=== PATIENT | male | born 1975 | race Caucasian/White ===

== ENCOUNTER 2023-05-09 12:42 | Inpatient (IN) | payer OTHER ==
[2023-05-09] MEDS ORDERED: PANTOPRAZOLE SODIUM 40 MG VIAL IVPUSH ONE (14:05)
[2023-05-09] MEDS ORDERED: SODIUM CHLORIDE 0.9% 500 ML INFUS.BAG IV ONE (14:05)
[2023-05-09] MEDS ORDERED: FAMOTIDINE 20 MG/50 ML IVPB 20 MG/50 ML MG IVPB ONE ×2 (14:05→14:25)
[2023-05-09] MEDS ORDERED: MAG HYDROX/AL HYDROX/SIMETH -MYLANTA- ORAL SUSPENSION PO ONE (14:11)
[2023-05-09] MEDS ORDERED: PANTOPRAZOLE SODIUM 40 MG VIAL IV ONE (14:12)
[2023-05-09] MEDS ORDERED: CEFTRIAXONE 1 GM in DEXTROSE 5%-WATER - 100 ML IVPB ONE (14:23)
[2023-05-09] MEDS ORDERED: MAG HYDROX/AL HYDROX/SIMETH 30 ML UNIT-DOSE CUP ONE (14:24)
[2023-05-09] MEDS ORDERED: PANTOPRAZOLE SODIUM 40 MG VIAL ONE (14:25)
[2023-05-09] MEDS ORDERED: PANTOPRAZOLE SODIUM 160 MG in SODIUM CHLORIDE 290 ML IVPB SCH ×2 (14:30→15:30)
[2023-05-09 14:51] LABS: BASO % 0.6 % (0-2.0); EOS % 0.3 % (0-4.5); HEMATOCRIT 37.5 % (35.4-49); HEMOGLOBIN 12.3 GM/dL (11.7-16.9); LYMPH % 16.4 % (8-40); MCH 31.4 pg (25.7-33.7); MCHC 32.7 g/dl (32.0-35.9); MEAN CELL VOLUME 95.9 fl (80-96); MEAN PLT VOLUME 10.1 fl (7.5-11.1); MONO % 9.7 % (3.8-10.2); PLATELET COUNT 83 10^3/uL (134-434); RBC 3.91 M/mm3 (4.00-5.60); RDW 14.6 % (11.9-15.9); WHITE BLOOD COUNT 7.9 K/mm3 (4.0-10.0)
[2023-05-09] MEDS ORDERED: CEFTRIAXONE 1 GM/50 ML BAG ONE (14:55)
[2023-05-09 14:59] LABS: INR 1.47 (0.83-1.09)
[2023-05-09 15:01] LABS: ACTIVATED PTT 35.1 SECONDS (25.2-36.5)
[2023-05-09 15:11] LABS: CHLORIDE 107 mmol/L (98-107); POTASSIUM 3.9 mmol/L (3.5-5.1); SODIUM 137 mmol/L (136-145)
[2023-05-09 15:14] LABS: ALBUMIN 2.5 g/dl (3.4-5.0); ANION GAP 6 mmol/L (4-13); BLOOD UREA NITROGEN 26.6 mg/dL (7-18); CALCIUM 8.6 mg/dL (8.5-10.1); CO2 24 mmol/L (21-32); GLUCOSE,RANDOM 188 mg/dL (74-106); LIPASE 93 U/L (73-393)
[2023-05-09 15:17] LABS: CREATININE 0.7 mg/dL (0.55-1.3); SGOT/AST 102 U/L (15-37); SGPT/ALT 58 U/L (13-61)
[2023-05-09 15:18] LABS: BILIRUBIN,TOTAL 2.5 mg/dL (0.2-1); TOT PROT 7.8 g/dl (6.4-8.2)
[2023-05-09 15:20] LABS: ALK PHOS 133 U/L (45-117)
[2023-05-09 15:21] LABS: LACTIC ACID 2.1 mmol/L (0.4-2.0)
[2023-05-09] MEDS ORDERED: LACTATED RINGERS SOLUTION 1,000 ML IV SCH ×4 (16:00→21:10)
[2023-05-09] MEDS ORDERED: LORazepam 1 MG TABLET PO SCH (17:00)
[2023-05-09] MEDS ORDERED: LACTATED RINGERS SOLUTION 1,000 ML/1,000 ML INFUS.BAG IV STA (18:30)
[2023-05-09] MEDS ORDERED: OCTREOTIDE ACETATE 100 MCG/1 ML IVPUSH ONE (18:38)
[2023-05-09] MEDS ORDERED: LORazepam 1 MG TABLET PO PRN (18:43)
[2023-05-09 18:56] LABS: HEMATOCRIT 33.9 % (35.4-49); HEMOGLOBIN 11.5 GM/dL (11.7-16.9); MEAN CELL VOLUME 94.1 fl (80-96); MEAN PLT VOLUME 10.9 fl (7.5-11.1); PLATELET COUNT 72 10^3/uL (134-434); WHITE BLOOD COUNT 8.1 K/mm3 (4.0-10.0)
[2023-05-09] MEDS ORDERED: OCTREOTIDE ACETATE 100 MCG/1 ML ONE (19:22)
[2023-05-09] MEDS ORDERED: ONDANSETRON 4 MG/2 ML VIAL IVPUSH PRN ×3 (19:34→21:10)
[2023-05-09] MEDS ORDERED: ONDANSETRON 4 MG/2 ML VIAL ONE (19:43)
[2023-05-09] MEDS ORDERED: FENTANYL CITRATE/PF 50 MCG/ML VIAL ONE ×4 (20:15→21:25)
[2023-05-09] MEDS ORDERED: MIDAZOLAM HCL 2 MG/2 ML SINGLE DOSE VIAL ONE (20:15)
[2023-05-09] MEDS ORDERED: KETAMINE HCL 200 MG/20 ML VIAL ONE (20:23)
[2023-05-09 20:35] LABS: MAGNESIUM 1.8 mg/dL (1.8-2.4)
[2023-05-09 20:40] LABS: PHOSPHOROUS 2.9 mg/dL (2.5-4.9)
[2023-05-09] MEDS ORDERED: RIFAXIMIN 550 MG TABLET PO SCH (22:00)
[2023-05-09 22:56] LABS: BASO % 0.5 % (0-2.0); EOS % 0.7 % (0-4.5); HEMATOCRIT 33.9 % (35.4-49); HEMOGLOBIN 11.1 GM/dL (11.7-16.9); LYMPH % 15.1 % (8-40); MCH 31.7 pg (25.7-33.7); MCHC 32.8 g/dl (32.0-35.9); MEAN CELL VOLUME 96.7 fl (80-96); MEAN PLT VOLUME 10.3 fl (7.5-11.1); MONO % 9.9 % (3.8-10.2); NEUT % 73.8 % (42.8-82.8); PLATELET COUNT 70 10^3/uL (134-434); RDW 14.5 % (11.9-15.9); WHITE BLOOD COUNT 7.4 K/mm3 (4.0-10.0)
[2023-05-09] MEDS: MUPIROCIN 2% TOPICAL OINTMENT FOR DECOLONIZATION NS SCH (23:25)
[2023-05-09] MEDS: CHLORHEXIDINE GLUCONATE 4% CLEANSER FOR DECOLONIZATION TP SCH (23:25)
[2023-05-09] MEDS: OCTREOTIDE ACETATE 200 MCG, OCTREOTIDE ACETATE 1,000 MCG in DEXTROSE 5%-WATER - 496 ML IVPB SCH (23:26)
[2023-05-09] MEDS: RIFAXIMIN 550 MG TABLET PO SCH (23:36)
[2023-05-09 23:53] VITALS: BMI 35.4
[2023-05-10] MEDS: THIAMINE HCL 200 MG/2 ML VIAL IVPB SCH ×4 (00:29→21:15)
[2023-05-10] MEDS: LACTATED RINGERS SOLUTION 1,000 ML IV SCH (00:30)
[2023-05-10] MEDS ORDERED: ONDANSETRON 4 MG/2 ML VIAL IVPUSH PRN (02:00)
[2023-05-10] MEDS ORDERED: CEFTRIAXONE 1 GM in DEXTROSE 5%-WATER - 50 ML IVPB SCH ×3 (06:00→10:00)
[2023-05-10 07:04] LABS: BASO % 0.6 % (0-2.0); EOS % 1.6 % (0-4.5); HEMATOCRIT 30.8 % (35.4-49); HEMOGLOBIN 10.1 GM/dL (11.7-16.9); LYMPH % 24.6 % (8-40); MCHC 32.9 g/dl (32.0-35.9); MEAN CELL VOLUME 97.4 fl (80-96); MEAN PLT VOLUME 9.9 fl (7.5-11.1); MONO % 9.8 % (3.8-10.2); NEUT % 63.4 % (42.8-82.8); PLATELET COUNT 62 10^3/uL (134-434); RBC 3.17 M/mm3 (4.00-5.60); RDW 14.4 % (11.9-15.9); WHITE BLOOD COUNT 7.1 K/mm3 (4.0-10.0)
[2023-05-10 07:09] LABS: INR 1.36 (0.83-1.09); PROTHROMBIN TIME (PATIENT) 15.7 SEC (9.7-13.0)
[2023-05-10 07:12] LABS: ACTIVATED PTT 34.1 SECONDS (25.2-36.5)
[2023-05-10 07:26] LABS: ALBUMIN 2.2 g/dl (3.4-5.0); CALCIUM 7.6 mg/dL (8.5-10.1); MAGNESIUM 2.1 mg/dL (1.8-2.4)
[2023-05-10 07:29] LABS: CREATININE 0.6 mg/dL (0.55-1.3); PHOSPHOROUS 3.3 mg/dL (2.5-4.9)
[2023-05-10 07:30] LABS: BILIRUBIN,TOTAL 1.4 mg/dL (0.2-1); TOT PROT 6.5 g/dl (6.4-8.2)
[2023-05-10] MEDS: RIFAXIMIN 550 MG TABLET PO SCH ×2 (09:54→21:19)
[2023-05-10] MEDS: MUPIROCIN 2% TOPICAL OINTMENT FOR DECOLONIZATION NS SCH ×2 (09:54→21:20)
[2023-05-10] MEDS ORDERED: FOLIC ACID 1 MG TABLET (FP) PO SCH (10:00)
[2023-05-10] MEDS ORDERED: PANTOPRAZOLE SODIUM 40 MG VIAL IVPUSH SCH (10:00)
[2023-05-10] MEDS ORDERED: NADOLOL 20 MG TABLET (FP) PO SCH (10:00)
[2023-05-10] MEDS ORDERED: LACTULOSE 20 GM/30 ML UDC (FOR ORAL USE ONLY) PO SCH ×2 (10:00)
[2023-05-10] MEDS ORDERED: PANTOPRAZOLE SODIUM 160 MG in SODIUM CHLORIDE 290 ML IVPB SCH (10:30)
[2023-05-10] MEDS ORDERED: ONDANSETRON 4 MG/2 ML VIAL ONE (11:03)
[2023-05-10] MEDS: OCTREOTIDE ACETATE 200 MCG, OCTREOTIDE ACETATE 1,000 MCG in DEXTROSE 5%-WATER - 496 ML IVPB SCH (21:20)
[2023-05-10] MEDS: CHLORHEXIDINE GLUCONATE 4% CLEANSER FOR DECOLONIZATION TP SCH (21:20)
[2023-05-11] MEDS ORDERED: LORazepam 1 MG TABLET PO SCH (05:00)
[2023-05-11] MEDS: THIAMINE HCL 200 MG/2 ML VIAL IVPB SCH (06:02)
[2023-05-11] MEDS: LACTATED RINGERS SOLUTION 1,000 ML IV SCH (06:02)
[2023-05-11] MEDS ORDERED: LACTATED RINGERS SOLUTION 1,000 ML IV SCH (07:42)
[2023-05-11] MEDS ORDERED: OCTREOTIDE ACETATE 200 MCG, OCTREOTIDE ACETATE 1,000 MCG in DEXTROSE 5%-WATER - 496 ML IVPB SCH ×2 (07:42→10:05)
[2023-05-11] MEDS ORDERED: MUPIROCIN 2% TOPICAL OINTMENT FOR DECOLONIZATION NS SCH (10:00)
[2023-05-11] MEDS: NADOLOL 20 MG TABLET (FP) PO SCH (10:31)
[2023-05-11] MEDS: RIFAXIMIN 550 MG TABLET PO SCH ×2 (10:31→23:36)
[2023-05-11] MEDS: LACTULOSE 20 GM/30 ML UDC (FOR ORAL USE ONLY) PO SCH (10:31)
[2023-05-11] MEDS: PANTOPRAZOLE SODIUM 40 MG VIAL IVPUSH SCH (10:32)
[2023-05-11] MEDS: FOLIC ACID 1 MG TABLET (FP) PO SCH (10:32)
[2023-05-11] MEDS: CEFTRIAXONE 1 GM in DEXTROSE 5%-WATER - 50 ML IVPB SCH (10:33)
[2023-05-11] MEDS ORDERED: THIAMINE HCL 200 MG/2 ML VIAL IVPB SCH (14:00)
[2023-05-11] MEDS ORDERED: CHLORHEXIDINE GLUCONATE 4% CLEANSER FOR DECOLONIZATION TP SCH (22:00)
[2023-05-12] MEDS ORDERED: LORazepam 0.5 MG TABLET PO PRN
[2023-05-12] MEDS ORDERED: LORazepam 0.5 MG TABLET PO SCH (05:00)
[2023-05-12] MEDS: CEFTRIAXONE 1 GM in DEXTROSE 5%-WATER - 50 ML IVPB SCH (09:24)
[2023-05-12] MEDS: LACTULOSE 20 GM/30 ML UDC (FOR ORAL USE ONLY) PO SCH (09:24)
[2023-05-12] MEDS: FOLIC ACID 1 MG TABLET (FP) PO SCH (09:24)
[2023-05-12] MEDS: RIFAXIMIN 550 MG TABLET PO SCH (09:24)
[2023-05-12] MEDS: NADOLOL 20 MG TABLET (FP) PO SCH (09:25)
[2023-05-12] MEDS: PANTOPRAZOLE SODIUM 40 MG VIAL IVPUSH SCH (09:25)
[2023-05-12] MEDS ORDERED: THIAMINE HCL 200 MG/2 ML VIAL IVPB SCH ×2 (10:00)
[2023-05-12 10:23] LABS: BASO % 0.8 % (0-2.0); EOS % 4.7 % (0-4.5); HEMOGLOBIN 10.4 GM/dL (11.7-16.9); LYMPH % 27.8 % (8-40); MCH 31.9 pg (25.7-33.7); MCHC 32.4 g/dl (32.0-35.9); MEAN CELL VOLUME 98.4 fl (80-96); MEAN PLT VOLUME 10.4 fl (7.5-11.1); MONO % 8.5 % (3.8-10.2); NEUT % 58.2 % (42.8-82.8); PLATELET COUNT 77 10^3/uL (134-434); RBC 3.25 M/mm3 (4.00-5.60); RDW 14.8 % (11.9-15.9); WHITE BLOOD COUNT 6.2 K/mm3 (4.0-10.0)
[2023-05-12 10:36] LABS: POTASSIUM 3.6 mmol/L (3.5-5.1)
[2023-05-12 10:55] LABS: CALCIUM 7.5 mg/dL (8.5-10.1); CREATININE 0.7 mg/dL (0.55-1.3)
[2023-05-12 10:56] LABS: ALBUMIN 2.2 g/dl (3.4-5.0); MAGNESIUM 2.1 mg/dL (1.8-2.4)
[2023-05-12 10:58] LABS: PHOSPHOROUS 3.5 mg/dL (2.5-4.9)
[2023-05-12 11:00] LABS: BILIRUBIN,TOTAL 1.8 mg/dL (0.2-1); TOT PROT 6.8 g/dl (6.4-8.2)
[2023-05-12 12:28] VITALS: BP 123/61; PULSE 62; RESP 19; TEMP 98.1
[2023-05-12 13:01] LABS: POTASSIUM 3.7 mmol/L (3.5-5.1)
[2023-05-12 13:05] LABS: CALCIUM 7.8 mg/dL (8.5-10.1)
[2023-05-12 13:06] LABS: ALBUMIN 2.4 g/dl (3.4-5.0); BLOOD UREA NITROGEN 13.6 mg/dL (7-18)
[2023-05-12 13:09] LABS: CREATININE 0.7 mg/dL (0.55-1.3)
[2023-05-12 13:10] LABS: BILIRUBIN,TOTAL 1.7 mg/dL (0.2-1); TOT PROT 7.2 g/dl (6.4-8.2)
[2023-05-13] MEDS ORDERED: LORazepam 0.5 MG TABLET PO ONE ×3 (05:00)
[2023-05-13] MEDS ORDERED: PANTOPRAZOLE 40 MG TABLET PO SCH (10:00)
== END 2023-05-12 14:42 | disposition home or self-care (01) | DRG 280 ==
LOC: JER 12:42 → JERBED 15:59 → JICU 22:44 → J5S 05-10 23:09
PROVIDERS: ADMIT Internal Medicine
PROC: HZ2ZZZZ Detoxification Services for Substance Abuse Treatment (ICD-10-PCS; 2023-05-09)
PROC: 06L38CZ Occlusion of Esophageal Vein with Extraluminal Device, Via Natural or Artificial Opening Endoscopic (ICD-10-PCS; principal; 2023-05-09 20:05)
DX: K70.30 Alcoholic cirrhosis of liver without ascites (principal); K70.10 Alcoholic hepatitis without ascites; K76.6 Portal hypertension; D69.6 Thrombocytopenia, unspecified; E72.20 Disorder of urea cycle metabolism, unspecified; E88.09 Other disorders of plasma-protein metabolism, not elsewhere classified; I85.11 Secondary esophageal varices with bleeding; E66.9 Obesity, unspecified; Z68.35 Body mass index [BMI] 35.0-35.9, adult; R94.5 Abnormal results of liver function studies
CPT/HCPCS: 36415; 71045-TC-FY; 74176-TC; 76705-TC; 80053; 80307; 82140; 82272; 83605; 83690; 83735; 84100; 84484; 85025; 85027; 85610; 85730; 86922; 87522; 87635; 93005; 93010; 94760; 97116-GP; 97161-GP; 99285-25